=== PATIENT | female | born 1980 | race Caucasian/White ===

== ENCOUNTER 2020-08-31 20:48 | Emergency (ER) | payer OTHER, SELFPAY ==
[2020-08-31 21:49] VITALS: BP 112/70; PULSE 73; RESP 16; TEMP 36.6; O2SAT 96; BMI 32.0
--- NOTE | 2020-08-31 22:01 | W.ED.WOUNDLC ---
HPI - Wound/Laceration General: Chief Complaint: Wound/Laceration Stated Complaint: Cut left foot Time Seen by Provider: 08/31/20 22:01 History of Present Illness: HPI narrative: Patient is a 40-year-old female comes to the ED with a laceration to left foot. Patient says she was swimming and stepped on something that cut her left great toe. She is unsure of what she stepped on that caused injury. After patient cleaned laceration out with hydrogen peroxide and iodine solution. She is not up-to-date on her tetanus. Associated symptoms: Denies chills, fever(s), nausea or vomiting Review of Systems Const: Denies: fever(s), chills or fatigue Eyes: Denies: change in vision or eye discomfort ENMT: Denies: throat pain, odynophagia, nasal discharge or nasal congestion Card: Denies: chest pain, palpitations, edema, swelling of feet/ankles, dyspnea on exertion or orthopnea Resp: Denies: dyspnea, productive cough or non-productive cough GI: Denies: abdominal pain, nausea, vomiting, diarrhea, constipation or hematochezia : Denies: flank pain, dysuria or hematuria Musc: Denies: neck pain, back pain or extremity swelling Skin/Breast: Reports: new lesions (laceration to left great toe); Denies: rash Neuro: Denies: headache(s), numbness in extremities or weakness in extremities [facility] Female Reproductive History: Date of last menstrual period: 08/24/20 Physical Exam Const: COMMON NORMALS: no acute distress, patient oriented x3 and alert GENERAL APPEARANCE: cooperative and comfortable HENMT: COMMON NORMALS: normocephalic HEAD & SCALP: normocephalic MOUTH: Normal oral and palatal mucosa present THROAT: posterior oropharynx normal and uvula midline Neck/C-Spine: COMMON NORMALS: supple GENERAL: Yes normal visual inspection Resp: COMMON NORMALS: normal respiratory effort, No retractions, No use of accessory muscles and clear to auscultation bilaterally AUSCULTATION: clear to auscultation bilaterally Cardio: COMMON NORMALS: regular rate, regular rhythm, S1 normal heart sound present, S2 normal heart sound present, No gallops present (Cardio), No clicks present (Cardio), No murmurs present (Cardio) and Peripheral pulses 2+ throughout RATE: regular rate RHYTHM: regular rhythm HEART SOUNDS: S1 normal heart sound present and S2 normal heart sound present PERIPHERAL PULSES: Peripheral pulses 2+ throughout GI: COMMON NORMALS: Normal to inspection, nondistended, normoactive bowel sounds present, Soft to palpation, non-tender and no masses PALPATION: Yes Soft to palpation : COMMON NORMALS: Yes no CVA tenderness BLADDER/KIDNEY EXAM: Yes no CVA tenderness Back/Pelvis: COMMON NORMALS: no CVA tenderness Neuro: COMMON NORMALS: patient oriented x3 and moves all extremities SENSORIUM/ORIENTATION: Yes alert Skin: GENERAL SKIN EXAM: dry skin TRAUMA: laceration (Left Great Toe Laceration) linear (0.75 cm linear laceration), superficial, motor nerve function intact and sensation intact; no pulsatile bleeding and no foreign bodies present Procedures Laceration Laceration 1: Site: lower extremity (Left foot-great toe) Side (If applicable): left Size (cm): 0.75 Description: linear and clean Depth: simple, single layer Local Anesthetic: lidocaine 1% Amount of anesthesia used (mL): 10 Pre-repair: irrigated extensively (With normal saline.) Skin layer closed with: nylon Size (cm): 4-0 Number of sutures: 2 Technique: simple, interrupted Course Vital Signs: Vital signs: Vital Signs Temperature 97.9 F 08/31/20 21:49 Pulse Rate 73 08/31/20 21:49 Respiratory Rate 16 08/31/20 21:49 Blood Pressure 112/70 08/31/20 21:49 Pulse Oximetry 96 08/31/20 21:49 MDM - Wound/Laceration MDM Narrative: Medical decision making narrative: Patient is a 40-year-old female comes to the ED with a laceration on left great toe. Local lidocaine 1% was used and wound was irrigated extensively with normal saline. Laceration was then closed using 2 sutures. Patient given updated tetanus shot today. Patient was given a dose of cephalexin while here in the ED and discharged home with cephalexin. Follow-up with PCP, ED or urgent care to have sutures removed in 7 to 10 days. Return to ED precautions given. Patient understood and agree with plan. Discharge Plan Discharge Patient Disposition: Home Clinical Impression: Laceration Condition: Stable Prescriptions: New cephalexin 500 mg capsule 500 mg PO Q6H 4 Days Qty: 16 RF: 0 Discharge Orders: Discharge ED (Routine); Ordered 08/31/20 Ordered By: Silvio Martin Discharge Diet: Regular Discharge Activity: Limit activity as instructed Patient Instructions: Suture Care (ED), Laceration (ED) Activity Restrictions/Additional Instructions: Take full course of antibiotics as prescribed. Keep laceration site clean and dry for the next 48 hours. Then after that you can allow water to rinse over foot, clean and re-bandage daily. Apply triple antibiotic ointment on laceration daily to help prevent infection. Watch for signs of infection such as redness, warmth, increased tenderness and puslike drainage. If you see the signs of infection return to the ED, urgent care or PCP for reevaluation. call your PCP to schedule a follow-up appointment for reevaluation and suture removal in about 7 days. Continue taking all home meds. Follow discharge plans as discussed. You can return to the ED if symptoms worsen. Coding Level of Care Code ED Elevator Attendant for Ajith Murray Exam Comprehensive
[2020-08-31] MEDS: tetanus-dipt-pertussis 0.5 mL SDV IM (23:01)
[2020-08-31] MEDS: lidocaine 1% INJ 20 mL INJECTION (23:04)
[2020-09-01] MEDS: cephALEXin 500 mg Capsule PO (00:20)
[2020-09-01] MEDS: neomycin-poly-bacitracin oint 0.9 gm Pkt 1 APPLIC TOPICAL (00:21)
== END 2020-09-01 00:22 | disposition home or self-care (01) ==
PROVIDERS: Emergency Provider Physician Assistant
DX: S91.112A Laceration without foreign body of left great toe without damage to nail, initial encounter (principal); W22.8XXA Striking against or struck by other objects, initial encounter; Y93.11 Activity, swimming; Z23 Encounter for immunization
CPT/HCPCS: 12001; 90471; 90715; 99283; A6446